=== PATIENT | male | born 1975 | race Caucasian/White ===

== ENCOUNTER 2017-07-27 23:16 | Emergency (ER) | payer BC ==
[~2017-07-27] VITALS: Ht 188 cm; Wt 128.0 kg
[2017-07-27 23:25] VITALS: TEMP 36.8; Ht 188 cm; Wt 128.0 kg
[2017-07-27 23:30] VITALS: O2SAT 98
--- NOTE | 2017-07-27 23:42 | EMERGENCY ROOM VISIT NOTE ---
History First contact with patient: 23:21 Chief Complaint: CHEST PAIN Stated Complaint: CHEST PAIN Nursing Triage Summary: c/o cp since last night also c/o some pain down lef arm states stong cardiac hx of his fathers side. History of Present Illness The patient is a 41 year old male who presents to the Emergency Room with complaints of left-sided chest pain which began last night. The patient states that he has had a dull ache in the left side of his chest which began last evening. He states that the pain did resolve for a period of time, but came back and has been constant throughout the day today. He states there is some discomfort into the left arm and he has had some dizziness at times. He rates the discomfort a 2/10 and states that nothing worsens or improves his symptoms. He reports he has had some slight shortness of breath associated with his symptoms. The patient states that he does not regularly see a primary care provider, but did have a physical 6 months ago. He had an EKG and some other testing at that time which was normal. He has never had a stress test before. He states that he "does not feel like himself." The symptoms came on gradually. He has not been associated with exertion. He does report a strong family history of cardiac disease on his father's side and states that his father passed from an ND at age 42. The patient denies any history of hypertension or hyperlipidemia. He does not take any medications daily. He did not take any medications for his symptoms today. He denies any palpitations , headache, neck pain, abdominal pain, nausea/vomiting or syncope. Review of Systems A complete 10 point review of systems was reviewed with the patient with pertinent positives and negatives as per history of present illness. All else were negative. Social History Smoking Status: Never Smoker Current/Historical Medications No Active Prescriptions or Reported Meds Physical Exam Vital Signs Date Time Temp Pulse Resp B/P (MAP) Pulse Ox O2 Delivery O2 Flow Rate FiO2 07/28/17 01:39 71 20 116/65 98 Room Air 07/28/17 00:13 79 18 128/69 95 Room Air 07/27/17 23:32 98 Room Air 07/27/17 23:31 90 20 137/82 98 Room Air 07/27/17 23:31 85 07/27/17 23:30 98 Room Air 07/27/17 23:25 36.8 84 18 137/82 99 Room Air Physical Exam VITALS: Vitals are noted on the nurse's note and reviewed by myself. Vital signs stable. GENERAL: This is a 41-year-old male, in no acute distress, nondiaphoretic, well- developed well-nourished. SKIN: The skin was without rashes. EARS: External auditory canals clear, tympanic membranes pearly gupta without erythema or effusion bilaterally. EYES: Pupils equal round and reactive to light and accommodation. MOUTH: Mucous membranes moist. Tonsils are not enlarged. Pharynx without erythema or exudate. NECK: Supple without nuchal rigidity. No lymphadenopathy. HEART: Regular rate and rhythm without murmurs gallops or rubs. LUNGS: Clear to auscultation bilaterally without wheezes, rales or rhonchi. No retractions or accessory muscle use. ABDOMEN: Soft, nondistended, nontender to palpation. NEURO: Patient was alert and oriented to person place and time. Medical Decision & Procedures ER Provider Diagnostic Interpretation: CHEST 1 VIEW: No acute cardiopulmonary findings. No change from previous. Laboratory Results 07/27/17 23:42 Red Blood Count 5.12, Mean Corpuscular Volume 88.1, Mean Corpuscular Hemoglobin 31.3, Mean Corpuscular Hemoglobin Concent 35.5, Mean Platelet Volume 9.1, Neutrophils (%) (Auto) 55.5, Lymphocytes (%) (Auto) 34.7, Monocytes (%) (Auto) 8.6, Eosinophils (%) (Auto) 0.8, Basophils (%) (Auto) 0.1, Neutrophils # (Auto) 3.94, Lymphocytes # (Auto) 2.47, Monocytes # (Auto) 0.61, Eosinophils # (Auto) 0.06, Basophils # (Auto) 0.01 07/27/17 23:37 Test 07/27/17 23:37 07/27/17 23:42 Anion Gap 6.0 mmol/L (3-11) Est Creatinine Clear Calc Drug Dose 141.0 ml/min Estimated GFR () 109.4 Estimated GFR (Non- 94.4 BUN/Creatinine Ratio 13.8 (10-20) Calcium Level 8.7 mg/dl (8.5-10.1) Total Bilirubin 0.4 mg/dl (0.2-1) Aspartate Amino Transf (AST/SGOT) U/L (15-37) Alanine Aminotransferase (ALT/SGPT) 52 U/L (12-78) Alkaline Phosphatase 53 U/L (45-117) Total Creatine Kinase U/L (39-308) Creatine Kinase MB 0.9 ng/ml (0.5-3.6) Creatine Kinase MB Ratio (0-3.0) Total Protein 7.9 gm/dl (6.4-8.2) Albumin 4.0 gm/dl (3.4-5.0) Globulin 3.9 gm/dl (2.5-4.0) Albumin/Globulin Ratio 1.0 (0.9-2) White Blood Count 7.11 K/uL (4.8-10.8) Red Blood Count 5.12 M/uL (4.7-6.1) Hemoglobin 16.0 g/dL (14.0-18.0) Hematocrit 45.1 % (42-52) Mean Corpuscular Volume 88.1 fL (80-100) Mean Corpuscular Hemoglobin 31.3 pg (25-34) Mean Corpuscular Hemoglobin Concent 35.5 g/dl (32-36) Platelet Count 236 K/uL (130-400) Mean Platelet Volume 9.1 fL (7.4-10.4) Neutrophils (%) (Auto) 55.5 % Lymphocytes (%) (Auto) 34.7 % Monocytes (%) (Auto) 8.6 % Eosinophils (%) (Auto) 0.8 % Basophils (%) (Auto) 0.1 % Neutrophils # (Auto) 3.94 K/uL (1.4-6.5) Lymphocytes # (Auto) 2.47 K/uL (1.2-3.4) Monocytes # (Auto) 0.61 K/uL (0.11-0.59) Eosinophils # (Auto) 0.06 K/uL (0-0.5) Basophils # (Auto) 0.01 K/uL (0-0.2) RDW Standard Deviation 42.4 fL (36.4-46.3) RDW Coefficient of Variation 13.2 % (11.5-14.5) Immature Granulocyte % (Auto) 0.3 % Immature Granulocyte # (Auto) 0.02 K/uL (0.00-0.02) Bedside Troponin I 0.030 ng/ml (0-0.045) ECG Rate (beats per minute): 76 Rhythm: normal sinus Findings: no ectopy Comparison ECG Date: T waves of V1-V6 appear flattened when compared to previous EKG ED Course The patient was evaluated as above. Labs were drawn and IV access was obtained. Patient was reevaluated and findings were discussed. A repeat EKG was performed. Discharge instructions were reviewed with the patient. The patient verbalized understanding of my assessment and treatment plan and was discharged home in good condition. Medical Decision Differential diagnosis includes acute coronary syndrome, pulmonary embolism, pneumothorax, pericarditis, myocarditis, endocarditis, anxiety, musculoskeletal pain, GERD, costochondritis, pneumonia, among others. The patient is a 41-year-old male who presents today complaining of left-sided chest pain for greater than 24 hours duration. Labs revealed no leukocytosis or anemia. Troponin was not elevated. EKG was interpreted by myself and does not show any acute ischemic changes, however T waves do appear flattened when compared to previous EKG. Leads were replaced and repeat EKG was performed which is similar. Patient's pain has been ongoing for greater than 24 hours and repeat troponin will not be necessary. Patient's HEART score was calculated and the patient is considered low risk for major adverse cardiac event. Given patient's family history of cardiac disease at a young age, I do feel he will need a stress test and further cardiac workup. I did have a lengthy discussion with the patient about the importance of close follow-up. He has not seen his primary care provider in several years. I urged him to call first thing in the morning to make this appointment and avoid any strenuous physical activity until then. He was instructed to return here with any worsening or new/concerning symptoms. The patient's case was reviewed with Dr. Avina, ED attending physician, who agreed with my assessment and treatment plan. Based on the patient's presentation and work up, I feel the patient is stable for outpatient treatment. The patient was educated to return to the emergency department for any worsening of their current condition or new/concerning symptoms. He will follow up with his PCP. Medication Reconcilliation Current Medication List: was personally reviewed by me Blood Pressure Screening Patient's blood pressure: Normal blood pressure Impression Primary Impression: Left sided chest pain Departure Information Dispostion Home / Self-Care Condition GOOD Prescriptions No Active Prescriptions or Reported Meds Referrals Francisco Nieves M.D. (PCP) Patient Instructions My [facility] Additional Instructions You have been treated in the Emergency Department for your Chest Pain. Laboratory results and Imaging Studies have ruled out any acute cardiac or pulmonary cause of your chest pain. For pain control, you can use the following [id number] medicines (if >12 yo): - Regular strength (325mg/tab) Tylenol (acetaminophen) 2 tabs every 4-6 hours as needed. Do not exceed 12 tablets in a 24 hour period. Avoid taking more than 4 grams (4000 mg) of Tylenol per day. This includes any other sources of acetaminophen you may take on a regular basis. - Regular strength (200 mg/tab) Advil (ibuprofen) 1-2 tabs every 4-6 hours as needed. Do not exceed a dose of 3200 mg per day. You may consider taking a medication like Zantac for the possibility of gastritis. You should schedule a follow-up appointment with your Primary Care Provider in 2 -3 days for further evaluation from today's Emergency Department visit. You will need further cardiac testing, likely including a stress test. Avoid any strenuous physical activity until you have further cardiac workup and clearance. Return to the Emergency Department if your current symptoms worsen despite treatment course outlined above, or if you develop any of the following symptoms : worsening chest pain, associated jaw/arm pain, nausea, dizziness, shortness of breath, bloody cough, or fainting.
[2017-07-27 23:47] LABS: BASO % 0.1 %; BASO ABS # 0.01 K/uL (0-0.2); COMPLETE YES; EOS % 0.8 %; HEMATOCRIT 45.1 % (42-52); IG% 0.3 %; LYMPH % 34.7 %; LYMPH ABS # 2.47 K/uL (1.2-3.4); MEAN CELL VOLUME 88.1 fL (80-100); MEAN CORPUSCULAR HEMOGLOBIN 31.3 pg (25-34); MEAN CORPUSCULAR HGB CONC 35.5 g/dl (32-36); MEAN PLATELET VOLUME 9.1 fL (7.4-10.4); MONO % 8.6 %; NEUT % 55.5 %; PLATELET COUNT 236 K/uL (130-400); RED BLOOD COUNT 5.12 M/uL (4.7-6.1); WHITE BLOOD COUNT 7.11 K/uL (4.8-10.8)
[2017-07-28 00:23] LABS: ALT/SGPT 52 U/L (12-78); BLOOD UREA NITROGEN 14 mg/dl (7-18); BUN/CREATININE RATIO 13.8 (10-20); CALCIUM 8.7 mg/dl (8.5-10.1); CARBON DIOXIDE 26 mmol/L (21-32); CHLORIDE 103 mmol/L (98-107); GLUCOSE 106 mg/dl (70-99); SODIUM 135 mmol/L (136-145)
[2017-07-28 00:25] LABS: ALKALINE PHOSPHATASE 53 U/L (45-117)
[2017-07-28 01:39] VITALS: BP 116/65; PULSE 71; O2SAT 98
--- NOTE | 2017-07-28 06:49 | DIAGNOSTIC IMAGING REPORT ---
CHEST ONE VIEW PORTABLE CLINICAL HISTORY: 41 years-old Male presenting with chest pain. TECHNIQUE: Portable upright AP view of the chest was obtained. COMPARISON: 10/16/2013. FINDINGS: Cardiomediastinal silhouette normal. Lungs and pleural spaces clear. Osseous structures normal. Upper abdomen normal. IMPRESSION: 1. No acute cardiopulmonary disease. Electronically signed by: Elliott Cruz M.D. 07/28/2017 6:48 AM Dictated Date/Time: 07/28/2017 6:47 AM
== END 2017-07-28 01:47 | disposition home or self-care (01) ==
LOC: C.EDB 23:18
DX: R07.9 Chest pain, unspecified (principal); M79.602 Pain in left arm; R42 Dizziness and giddiness; Z82.49 Family history of ischemic heart disease and other diseases of the circulatory system